=== PATIENT | female | born 1990 | race American Indian/Alaskan Native ===

== ENCOUNTER 2018-11-16 20:53 | Emergency (ER) | payer OTHER ==
[2018-11-16] MEDS ORDERED: NACL 0.9% 1000 ML 1,000 ML IV ONE ×2 (21:07→22:46)
[2018-11-16 21:36] LABS: Basophils % (Auto) 0.6 % (0.0-1.8); Eosinophils % (Auto) 0.4 % (0.0-4.3); Hematocrit 44.5 % (30.3-42.9); Hemoglobin 14.5 gm/dl (10.1-14.3); Lymphocytes # (Auto) 1.1 K/mm3 (1.2-5.4); Lymphocytes % (Auto) 17.6 % (13.4-35.0); Mean Corpuscular HGB Conc 33 % (30-34); Mean Corpuscular Volume 89 fl (79-97); Monocytes # (Auto) 0.6 K/mm3 (0.0-0.8); Monocytes % (Auto) 9.9 % (0.0-7.3); Platelet Count 283 K/mm3 (140-440); Red Cell Distribution Width 13.5 % (13.2-15.2)
[2018-11-16 21:58] LABS: Alanine Aminotransferase 12 units/L (7-56); Albumin 4.5 g/dL (3.9-5); BUN/Creatinine Ratio 15; Blood Urea Nitrogen 12 mg/dL (7-17); Calcium 10.1 mg/dL (8.4-10.2); Hemolysis Index 2
--- NOTE | 2018-11-16 22:05 | Emergency Department Report ---
ED Female HPI - General Chief complaint: Abdominal Pain Stated complaint: BACK PAIN NV 12 WKS LAST PERIOD Time Seen by Provider: 11/16/18 21:50 Source: patient Mode of arrival: Ambulatory Limitations: No Limitations - History of Present Illness Initial comments: 28-year-old -[place] female who states that for the past 3 days she's had upset stomach and nausea and is 12 days late on her period. Patient reported she vomited 2 only in the morning. She complains of lower back pain and pelvic cramping that is intermittent. Patient reports that she took a home test which was negative. Patient reports she took Tylenol yesterday about 12 noon and has not taken any other pain medicine. Patient reports that she was able to eat this evening some vegetable soup and orange juice. Patient reports that the pain is worse with movement and rest makes it better. Patient denies any trauma to her abdomen or back. She reports a past medical history of asthma which has been controlled. Surgical history is anterior cruciate ligamen t surgery and meniscus tear repair in 2008 when her left knee. Patient does not have a primary care provider and has not seen a primary care provider in 2 years. Patient reports her pain is 6 out of 10. MD Complaint: pelvic pain -: days(s) (3 nausea, vomited 2) Location: suprapubic Severity: moderate Severity scale (0 -10): 6 Quality: cramping Consistency: intermittent Improves with: other (rest) Worsens with: movement Are you Now?: No Last Menstrual Period: 10/04/18 EDC: 07/11/19 Associated Symptoms: abdominal pain, nausea/vomiting - Related Data Sexually active: Yes Previous Rx's Medication Instructions Recorded Last Taken Type Vits96/Iron Fum/Folic 1 each PO QDAY #90 tablet 11/17/18 Unknown Rx [ Tablet] metroNIDAZOLE [Flagyl TAB] 250 mg PO Q8HR 7 Days #21 tablet 11/17/18 Unknown Rx Allergies Allergy/AdvReac Type Severity Reaction Status Date / Time No Known Allergies Allergy Unverified 11/16/18 21:07 ED Review of Systems ROS: Stated complaint: BACK PAIN NV 12 WKS LAST PERIOD Other details as noted in HPI Comment: All other systems reviewed and negative Gastrointestinal: abdominal pain, nausea, vomiting ED Past Medical Hx - Past Medical History Previous Medical History?: No Hx Hypertension: No Hx CVA: No Hx Heart Attack/AMI: No Hx Congestive Heart Failure: No Hx Diabetes: No Hx Deep Vein Thrombosis: No Hx Pulmonary Embolism: No Hx GERD: No Hx Liver Disease: No Hx Renal Disease: No Hx of Cancer: No Hx Sickle Cell Disease: No Hx Arthritis: No Hx Headaches / Migraines: No Hx Seizures: No Hx Kidney Stones: No Hx Psychiatric Treatment: No Hx Asthma: Yes Hx COPD: No Hx Tuberculosis: No Hx Dementia: No Hx HIV: No - Surgical History Past Surgical History?: Yes Hx Coronary Stent: No Hx Open Heart Surgery: No Hx Pacemaker: No Hx Internal Defibrillator: No Hx Cholecystectomy: No Hx Appendectomy: No Hx Breast Surgery: No Additional Surgical History: acl repare on left knee - Social History Smoking Status: Never Smoker Substance Use Type: Marijuana - Medications Home Medications: Home Medications Medication Instructions Recorded Confirmed Last Taken Type Vits96/Iron Fum/Folic 1 each PO QDAY #90 tablet 11/17/18 Unknown Rx [ Tablet] metroNIDAZOLE [Flagyl TAB] 250 mg PO Q8HR 7 Days #21 tablet 11/17/18 Unknown Rx ED Physical Exam - General Limitations: No Limitations General appearance: alert, in no apparent distress - Head Head exam: Present: atraumatic, normocephalic - Eye Eye exam: Present: normal appearance - ENT ENT exam: Present: mucous membranes moist - Neck Neck exam: Present: normal inspection - Respiratory Respiratory exam: Present: normal lung sounds bilaterally. Absent: respiratory distress - Cardiovascular Cardiovascular Exam: Present: regular rate, normal rhythm. Absent: systolic murmur, diastolic murmur, rubs, gallop - GI/Abdominal GI/Abdominal exam: Present: soft, normal bowel sounds. Absent: distended, tenderness - External exam: Present: normal external exam Speculum exam: Present: vaginal discharge Bi-manual exam: Present: normal bi-manual exam. Absent: cervical motion tendernes, adnexal tenderness, uterine tenderness - Extremities Exam Extremities exam: Present: normal inspection - Back Exam Back exam: Present: normal inspection - Neurological Exam Neurological exam: Present: alert, oriented X3, normal gait - Psychiatric Psychiatric exam: Present: normal affect, normal mood - Skin Skin exam: Present: warm, dry, intact, normal color. Absent: rash ED Course Vital Signs 11/16/18 11/16/18 11/17/18 20:58 21:00 00:17 Temperature 99.3 F 99.3 F 99.1 F Pulse Rate 65 66 62 Respiratory 16 16 16 Rate Blood Pressure 110/64 110/64 Blood Pressure 110/64 104/58 [Right] O2 Sat by Pulse 100 100 100 Oximetry ED Medical Decision Making - Lab Data Result diagrams: 11/16/18 21:16 11/16/18 21:16 Labs 11/16/18 11/16/18 11/16/18 21:16 21:16 21:16 WBC 6.2 RBC 5.00 Hgb 14.5 H Hct 44.5 H MCV 89 MCH 29 MCHC 33 RDW 13.5 Plt Count 283 Lymph % (Auto) 17.6 [place] % (Auto) 9.9 H Eos % (Auto) 0.4 Baso % (Auto) 0.6 Lymph # 1.1 L [place] # 0.6 Eos # 0.0 Baso # 0.0 Seg Neutrophils % 71.5 H Seg Neutrophils # 4.5 Sodium 137 Potassium 4.1 Chloride 99.2 Carbon Dioxide 23 Anion Gap 19 BUN 12 Creatinine 0.8 Estimated GFR > 60 BUN/Creatinine Ratio 15 Glucose 87 Calcium 10.1 Total Bilirubin 0.70 AST 16 ALT 12 Alkaline Phosphatase 41 Total Protein 7.5 Albumin 4.5 Albumin/Globulin Ratio 1.5 HCG, Qual Positive HCG, Quant Urine Color Urine Turbidity Urine pH Ur Specific [place] Urine Protein Urine Glucose (UA) Urine Ketones Urine Blood Urine Nitrite Urine Bilirubin Urine Urobilinogen Ur Leukocyte Esterase Urine WBC (Auto) Urine RBC (Auto) U Epithel Cells (Auto) Urine Bacteria (Auto) Urine Mucus 11/16/18 11/16/18 21:43 22:27 WBC RBC Hgb Hct MCV MCH MCHC RDW Plt Count Lymph % (Auto) [place] % (Auto) Eos % (Auto) Baso % (Auto) Lymph # [place] # Eos # Baso # Seg Neutrophils % Seg Neutrophils # Sodium Potassium Chloride Carbon Dioxide Anion Gap BUN Creatinine Estimated GFR BUN/Creatinine Ratio Glucose Calcium Total Bilirubin AST ALT Alkaline Phosphatase Total Protein Albumin Albumin/Globulin Ratio HCG, Qual HCG, Quant 10357 H Urine Color Yellow Urine Turbidity Clear Urine pH 6.0 Ur Specific Cameron 1.018 Urine Protein <15 mg/dl Urine Glucose (UA) Neg Urine Ketones 80 Urine Blood Neg Urine Nitrite Neg Urine Bilirubin Neg Urine Urobilinogen < 2.0 Ur Leukocyte Esterase Neg Urine WBC (Auto) 2.0 Urine RBC (Auto) 3.0 U Epithel Cells (Auto) 4.0 Urine Bacteria (Auto) 1+ Urine Mucus 1+ - Radiology Data Radiology results: report reviewed FINAL REPORT EXAM: US OB lt; = 14 WEEKS FETUS HISTORY: pelvic pain +HCG TECHNIQUE: Transabdominal sonographic evaluation was performed of the female pelvis with and without color Doppler imaging. PRIORS: None. FINDINGS: FINDINGS: A single viable intrauterine is noted. [place]-rump length measures 4.6 mm and the heart rate measures 135 beats per minute. Trace free fluid in the cul-de-sac. Incidental 1.6 x 1.5 x 1.7 cm probable anterior uterine fibroid is noted. Measurements: Uterus: 8.3 x 5.2 x 6.9. Last menstrual period: 10/04/2018. Right ovary measures 1.9 x 1.6 x 2.2 cm Left ovary measures 3.5 x 1.4 x 2.5 cm IMPRESSION: Single viable intrauterine with heart rate measuring 135 beats per minute. 1.7 cm uterine fibroid with mild mass effect on the endometrial stripe. RECOMMENDATION: 20-22 week anatomic survey to document appropriate interval growth, or earlier if continued symptoms. Transcribed By: JOHN Dictated By: TREMAYNE BRICE DO Electronically Authenticated By: TREMAYNE BRICE DO Signed Date/Time: 11/17/186 DD/ TD/TT: 11/17/188 - Medical Decision Making Patient has been evaluated by this provider in fast track. Tylenol 975 mg given for pain management. CBC CMP urinalysis hCG quantitative with prep pelvic exam ultrasound will be ordered. IV normal saline started since patient has ketones in her urine and has not been able to eat or drink. Zofran given IV 4 mg for nausea. Critical care attestation.: If time is entered above; I have spent that time in minutes in the direct care of this critically ill patient, excluding procedure time. ED Disposition Clinical Impression: Incidental confirmed, BV (bacterial vaginosis) Back pain Qualifiers: Back pain location: low back pain Back pain laterality: bilateral Sciatica presence: without sciatica Disposition: - TO HOME OR SELFCARE Is pt being admited?: No Does the pt Need Aspirin: No Condition: Stable Instructions: Abdominal Pain (ED), (ED), Bacterial Vaginosis (ED) Additional Instructions: Please take antibiotics as prescribed please take your vitamins as prescribed. Please increase her water intake to avoid alcohol use for ibuprofen and Advil. Only pain medication to take Tylenol follow-up with an bulk sealer in the next 3-5 days. Prescriptions: metroNIDAZOLE [Flagyl TAB] 250 mg PO Q8HR 7 Days #21 tablet Vits96/Iron Fum/Folic [ Tablet] 1 each PO QDAY #90 tablet Referrals: CHAD URIARTE DO [Primary Care Provider] - 3-5 Days [facility] [Provider Group] - 3-5 Days [facility] [Provider Group] - 3-5 Days [facility] [Provider Group] - 3-5 Days [facility] [Provider Group] - 3-5 Days Forms: STI Treatment and Prevention, Accompanied Note
[2018-11-16 22:06] LABS: Bacteria,Urine 1+ /HPF (Negative); Bilirubin,Urine NEG (Negative); Blood,Urine NEG (Negative); Color,Urine Yellow (Yellow); Mucus,Urine 1+ /HPF; Protein,Urine <15 mg/dL mg/dL (Negative); Urobilinogen,Urine < 2.0 mg/dL (<2.0)
[2018-11-16] MEDS ORDERED: TYLENOL ONE (22:46)
[2018-11-16] MEDS ORDERED: TYLENOL PO ONE (22:46)
[2018-11-16] MEDS ORDERED: ZOFRAN IV ONE (22:46)
--- NOTE | 2018-11-17 00:07 | Ultrasound Report ---
FINAL REPORT EXAM: US OB <= 14 WEEKS FETUS HISTORY: pelvic pain +HCG TECHNIQUE: Transabdominal sonographic evaluation was performed of the female pelvis with and without color Doppler imaging. PRIORS: None. FINDINGS: FINDINGS: A single viable intrauterine is noted. [place]-rump length measures 4.6 mm and the heart rate measures 135 beats per minute. Trace free fluid in the cul-de-sac. Incidental 1.6 x 1.5 x 1.7 cm probable anterior uterine fibroid is noted. Measurements: Uterus: 8.3 x 5.2 x 6.9. Last menstrual period: 10/04/2018. Right ovary measures 1.9 x 1.6 x 2.2 cm Left ovary measures 3.5 x 1.4 x 2.5 cm IMPRESSION: Single viable intrauterine with heart rate measuring 135 beats per minute. 1.7 cm uterine fibroid with mild mass effect on the endometrial stripe. RECOMMENDATION: 20-22 week anatomic survey to document appropriate interval growth, or earlier if con tinued symptoms.
--- NOTE | 2018-11-17 00:08 | Ultrasound Report ---
FINAL REPORT EXAM: US OB TRANSVAGINAL HISTORY: pelvic pain +HCG TECHNIQUE: Transvaginal sonographic evaluation was performed of the female pelvis with and without c olor Doppler imaging. PRIORS: None. FINDINGS: FINDINGS: A single viable intrauterine is noted. [place]-rump length measures 4.6 mm and the heart rate measures 135 beats per minute. Mild fee fluid in the cul-de-sac. Incidental 1.6 x 1. 5 x 1.7 cm probable anterior uterine fibroid is noted. Measurements: Uterus: 8.3 x 5.2 x 6.9. Last menstrual period: 10/04/2018. Right ovary measures 1.9 x 1.6 x 2.2 cm Left ovary measures 3.5 x 1.4 x 2.5 cm IMPRESSION: Single viable intrauterine with heart rate measuring 135 beats per minute. 1.7 cm uterine fibroid with mild mass effect on the endometrial stripe. RECOMMENDATION: 20-22 week anatomic survey to document appropriate interval growth, or earlier if con tinued symptoms.
[2018-11-17 00:17] VITALS: BP 104/58
== END 2018-11-17 01:02 | disposition home or self-care (01) ==
LOC: ED 20:53
DX: O23.591 Infection of other part of genital tract in pregnancy, first trimester (principal); B96.89 Other specified bacterial agents as the cause of diseases classified elsewhere; O21.8 Other vomiting complicating pregnancy; O99.511 Diseases of the respiratory system complicating pregnancy, first trimester; J45.909 Unspecified asthma, uncomplicated; F12.10 Cannabis abuse, uncomplicated; Z3A.01 Less than 8 weeks gestation of pregnancy
CPT/HCPCS: 36415; 76801; 76817; 80053; 81001; 84702; 84703; 85025; 87210; 96361; 96374; 99285; J2405; J7030

== ENCOUNTER 2021-09-15 09:13 | Emergency (ER) | payer MEDICAID, OTHER ==
[2021-09-15 10:14] VITALS: BP 96/62
--- NOTE | 2021-09-15 11:31 | Emergency Department Report ---
ED General Adult HPI - General Chief complaint: Abdominal Pain Stated complaint: abdominal cramping Time Seen by Provider: 09/15/21 09:26 Source: patient Mode of arrival: Ambulatory Limitations: No Limitations - History of Present Illness Initial comments: 31-year-old -[place] female patient presents with complaints of right lower abdominal cramping pain intermittently x1 week. Patient states she was referred here by her DIRECTOR PROCESS ENGINEERING at [place] for possible ectopic . Patient states she is G3, (twin ). She denies any vaginal bleeding, dysuria/hematuria, vaginal discharge, urinary frequency, dyspareunia, or fever/chills/sweats. No pain at current per patient. She states when the pain does occur it radiates through to her back. She also denies any other past medical history. - Related Data Previous Rx's Medication Instructions Recorded Last Taken Type Vits96/Iron Fum/Folic 1 each PO QDAY #90 tablet 11/17/18 Unknown Rx [ Tablet] metroNIDAZOLE [Flagyl TAB] 250 mg PO Q8HR 7 Days #21 tablet 11/17/18 Unknown Rx Allergies Allergy/AdvReac Type Severity Reaction Status Date / Time No Known Allergies Allergy Unverified 11/16/18 21:07 ED Review of Systems ROS: Stated complaint: abdominal cramping Other details as noted in HPI Constitutional: denies: chills, diaphoresis, fever, malaise, weakness Gastrointestinal: abdominal pain. denies: nausea, vomiting Genitourinary: denies: urgency, dysuria, frequency, hematuria, discharge, abnormal menses Skin: denies: lesions Hematological/Lymphatic: denies: swollen glands ED Past Medical Hx - Past Medical History Hx Hypertension: No Hx CVA: No Hx Heart Attack/AMI: No Hx Congestive Heart Failure: No Hx Diabetes: No Hx Deep Vein Thrombosis: No Hx Pulmonary Embolism: No Hx GERD: No Hx Liver Disease: No Hx Renal Disease: No Hx Sickle Cell Disease: No Hx Arthritis: No Hx Headaches / Migraines: No Hx Seizures: No Hx Kidney Stones: No Hx Psychiatric Treatment: No Hx Asthma: Yes Hx COPD: No Hx Tuberculosis: No Hx Dementia: No Hx HIV: No - Surgical History Hx Coronary Stent: No Hx Open Heart Surgery: No Hx Pacemaker: No Hx Internal Defibrillator: No Hx Cholecystectomy: No Hx Appendectomy: No Hx Breast Surgery: No Additional Surgical History: acl repare on left knee - Social History Smoking Status: Never Smoker Substance Use Type: Marijuana - Medications Home Medications: Home Medications Medication Instructions Recorded Confirmed Last Taken Type Vits96/Iron Fum/Folic 1 each PO QDAY #90 tablet 11/17/18 Unknown Rx [ Tablet] metroNIDAZOLE [Flagyl TAB] 250 mg PO Q8HR 7 Days #21 tablet 11/17/18 Unknown Rx ED Physical Exam - General Limitations: No Limitations General appearance: alert, in no apparent distress - Head Head exam: Present: atraumatic, normocephalic - Eye Eye exam: Present: normal appearance. Absent: scleral icterus - Respiratory Respiratory exam: Absent: respiratory distress - Cardiovascular Cardiovascular Exam: Present: regular rate - GI/Abdominal GI/Abdominal exam: Present: soft, normal bowel sounds. Absent: distended, tenderness, guarding, rebound, rigid - Neurological Exam Neurological exam: Present: alert, oriented X3 - Psychiatric Psychiatric exam: Present: normal affect, normal mood - Skin Skin exam: Present: warm, dry, intact, normal color. Absent: rash ED Course Vital Signs 09/15/21 09:19 Temperature 98.6 F Pulse Rate 68 Respiratory 16 Rate Blood Pressure 96/62 O2 Sat by Pulse 100 Oximetry ED Medical Decision Making - Lab Data Result diagrams: 09/15/21 11:27 09/15/21 11:27 Lab Results 09/15/21 09/15/21 09/15/21 Range/Units 11:27 11:27 11:27 WBC 8.0 (4.5-11.0) K/mm3 RBC 4.92 (3.65-5.03) M/mm3 Hgb 13.3 (10.1-14.3) gm/dl Hct 43.0 H (30.3-42.9) % MCV 87 (79-97) fl MCH 27 L (28-32) pg MCHC 31 (30-34) % RDW 15.7 H (13.2-15.2) % Plt Count 286 (140-440) K/mm3 Lymph % (Auto) 12.7 L (13.4-35.0) % [place] % (Auto) 6.5 (0.0-7.3) % Eos % (Auto) 1.3 (0.0-4.3) % Baso % (Auto) 0.7 (0.0-1.8) % Lymph # (Auto) 1.0 L (1.2-5.4) K/mm3 [place] # (Auto) 0.5 (0.0-0.8) K/mm3 Eos # (Auto) 0.1 (0.0-0.4) K/mm3 Baso # (Auto) 0.1 (0.0-0.1) K/mm3 Seg Neutrophils % 78.8 H (40.0-70.0) % Seg Neutrophils # 6.3 (1.8-7.7) K/mm3 Sodium 138 (137-145) mmol/L Potassium 4.2 (3.6-5.0) mmol/L Chloride 101.4 (98-107) mmol/L Carbon Dioxide 24 (22-30) mmol/L Anion Gap 17 mmol/L BUN 8 (7-17) mg/dL Creatinine 0.6 (0.6-1.2) mg/dL Estimated GFR > 60 ml/min BUN/Creatinine Ratio 13 % Glucose 86 (65-100) mg/dL Calcium 9.8 (8.4-10.2) mg/dL Total Bilirubin 0.30 (0.1-1.2) mg/dL AST 15 (5-40) units/L ALT 15 (7-56) units/L Alkaline Phosphatase 57 (35-129) units/L Total Protein 7.5 (6.3-8.2) g/dL Albumin 4.4 (3.9-5) g/dL Albumin/Globulin Ratio 1.4 % HCG, Quant 97423 H (0-4) mIU/mL Urine Color (Yellow) Urine Turbidity (Clear) Urine pH (5.0-7.0) Ur Specific [place] (1.003-1.030) Urine Protein (Negative) mg/dL Urine Glucose (UA) (Negative) mg/dL Urine Ketones (Negative) mg/dL Urine Blood (Negative) Urine Nitrite (Negative) Urine Bilirubin (Negative) Urine Urobilinogen (<2.0) mg/dL Ur Leukocyte Esterase (Negative) Urine WBC (Auto) (0.0-6.0) /HPF Urine RBC (Auto) (0.0-6.0) /HPF U Epithel Cells (Auto) (0-13.0) /HPF Urine Mucus /HPF Blood Type 09/15/21 09/15/21 Range/Units 11:27 12:19 WBC (4.5-11.0) K/mm3 RBC (3.65-5.03) M/mm3 Hgb (10.1-14.3) gm/dl Hct (30.3-42.9) % MCV (79-97) fl MCH (28-32) pg MCHC (30-34) % RDW (13.2-15.2) % Plt Count (140-440) K/mm3 Lymph % (Auto) (13.4-35.0) % [place] % (Auto) (0.0-7.3) % Eos % (Auto) (0.0-4.3) % Baso % (Auto) (0.0-1.8) % Lymph # (Auto) (1.2-5.4) K/mm3 [place] # (Auto) (0.0-0.8) K/mm3 Eos # (Auto) (0.0-0.4) K/mm3 Baso # (Auto) (0.0-0.1) K/mm3 Seg Neutrophils % (40.0-70.0) % Seg Neutrophils # (1.8-7.7) K/mm3 Sodium (137-145) mmol/L Potassium (3.6-5.0) mmol/L Chloride (98-107) mmol/L Carbon Dioxide (22-30) mmol/L Anion Gap mmol/L BUN (7-17) mg/dL Creatinine (0.6-1.2) mg/dL Estimated GFR ml/min BUN/Creatinine Ratio % Glucose (65-100) mg/dL Calcium (8.4-10.2) mg/dL Total Bilirubin (0.1-1.2) mg/dL AST (5-40) units/L ALT (7-56) units/L Alkaline Phosphatase (35-129) units/L Total Protein (6.3-8.2) g/dL Albumin (3.9-5) g/dL Albumin/Globulin Ratio % HCG, Quant (0-4) mIU/mL Urine Color Yellow (Yellow) Urine Turbidity Slightly-cloudy (Clear) Urine pH 7.0 (5.0-7.0) Ur Specific [place] 1.014 (1.003-1.030) Urine Protein <15 mg/dl (Negative) mg/dL Urine Glucose (UA) Neg (Negative) mg/dL Urine Ketones Neg (Negative) mg/dL Urine Blood Neg (Negative) Urine Nitrite Neg (Negative) Urine Bilirubin Neg (Negative) Urine Urobilinogen < 2.0 (<2.0) mg/dL Ur Leukocyte Esterase Tr (Negative) Urine WBC (Auto) 1.0 (0.0-6.0) /HPF Urine RBC (Auto) 1.0 (0.0-6.0) /HPF U Epithel Cells (Auto) 13.0 (0-13.0) /HPF Urine Mucus Few /HPF Blood Type O POSITIVE - Radiology Data Radiology results: report reviewed ULTRASOUND OBSTETRIC INDICATION / CLINICAL INFORMATION: abd pain, r/o ectopic. Clinical Gestational Age (GA) in weeks, days: Approximately 7 weeks 1 day TECHNIQUE: Transabdominal. COMPARISON: None available. FINDINGS: GESTATIONAL SAC: Well-defined oval shape and intrauterine in location. Estimated gestational age is 5 weeks 5 days. YOLK SAC: No significant abnormality. EMBRYO/FETUS: A pole is not identified within the gestational sac. It is most likely too early for visualization of a pole. ADNEXA: Left ovary is unremarkable. Adjacent to the right ovary, there is a complex mass measuring 1.9 x 1.4 cm. The mass has central cystic component and is surrounded by increased vascularity. Potentially this could represent an ectopic . There is a small amount of free fluid in the posterior cul-de-sac. FREE FLUID: None. ADDITIONAL FINDINGS: Small uterine fibroid is noted along the posterior uterine body measuring 1.4 cm. IMPRESSION: 1. Intrauterine gestational sac with estimated sonographic age of 5 weeks, 5 days. 2. 1.9 cm right adnexal mass. I cannot exclude the possibility of right adnexal ectopic and clinical correlation is recommended. 3. Small amount of free fluid present. - Medical Decision Making 31-year-old -[place] female patient presents with complaints of right lower abdominal cramping pain intermittently x1 week. Patient states she was referred here by her DIRECTOR PROCESS ENGINEERING at [place] for possible ectopic . Patient states she is G3, (twin ). She denies any vaginal bleeding, dysuria/hematuria, vaginal discharge, urinary frequency, dyspareunia, or fever/chills/sweats. No pain at current per patient. She states when the pain does occur it radiates through to her back. She also denies any other past medical history. No tenderness of abdomen on exam. Beta-hCG is 11,885. UA is normal. U ltrasound shows viable IUP at 5 weeks 5 days and right adnexal mass that cannot be ruled out as an ectopic . Discussed patient with Dr. Bailey, DIRECTOR PROCESS ENGINEERING on-call who states mass is likely a corpus luteal cyst and that the patient may be discharged home with follow-up with her DIRECTOR PROCESS ENGINEERING. Patient informed to follow-up with her DIRECTOR PROCESS ENGINEERING in 2 to 3 days. Her vitals are normal, she is well-appearing. Patient is stable for discharge home. Discussed in detail signs symptoms that should prompt immediate return to the ED with patient who verbalizes understanding. Critical care attestation.: If time is entered above; I have spent that time in minutes in the direct care of this critically ill patient, excluding procedure time. ED Disposition Clinical Impression: Abdominal pain during in first trimester, Abnormal ultrasound Disposition: 01 HOME / SELF CARE / HOMELESS Is pt being admited?: No Condition: Stable Instructions: Abdominal Pain During , [id number], Abdominal Pain (ED) Additional Instructions: Please follow-up with your DIRECTOR PROCESS ENGINEERING within 2 to 3 days. If you develop new or worsening symptoms, seek immediate emergency treatment
--- NOTE | 2021-09-15 11:42 | Ultrasound Report ---
ULTRASOUND OBSTETRIC INDICATION / CLINICAL INFORMATION: abd pain, r/o ectopic. Clinical Gestational Age (GA) in weeks, days: Approximately 7 weeks 1 day TECHNIQUE: Transabdominal. COMPARISON: None available. FINDINGS: GESTATIONAL SAC: Well-defined oval shape and intrauterine in location. Estimated gestational age is 5 weeks 5 days. YOLK SAC: No significant abnormality. EMBRYO/FETUS: A pole is not identified within the gestational sac. It is most likely too early for visualization of a pole. ADNEXA: Left ovary is unremarkable. Adjacent to the right ovary, there is a complex mass measuring 1.9 x 1.4 cm. The mass has central cys tic component and is surrounded by increased vascularity. Potentially this could represent an ectopic . There is a small amount of free fluid in the posterior cul-de-sac. FREE FLUID: None. ADDITIONAL FINDINGS: Small uterine fibroid is noted along the posterior uterine body measuring 1.4 cm . IMPRESSION: 1. Intrauterine gestational sac with estimated sonographic age of 5 weeks, 5 days. 2. 1.9 cm right adnexal mass. I cannot exclude the possibility of right adnexal ectopic and clinical correlation is recommended. 3. Small amount of free fluid present. CRITICAL RESULT: Time of Discovery: 1020 RESIDENTIAL ROOFER Time of Communication: 10:37 RESIDENTIAL ROOFER Licensed Practitioner Receiving Report: Mary Read Back Performed: Yes. Signer Name: Alta Ospina MD Signed: 09/15/2021 11:38 AM Workstation Name: [id number]
--- NOTE | 2021-09-15 11:42 | Ultrasound Report ---
ULTRASOUND OBSTETRIC INDICATION / CLINICAL INFORMATION: abd pain, r/o ectopic. Clinical Gestational Age (GA) in weeks, days: Approximately 7 weeks 1 day TECHNIQUE: Transabdominal. COMPARISON: None available. FINDINGS: GESTATIONAL SAC: Well-defined oval shape and intrauterine in location. Estimated gestational age is 5 weeks 5 days. YOLK SAC: No significant abnormality. EMBRYO/FETUS: A pole is not identified within the gestational sac. It is most likely too early for visualization of a pole. ADNEXA: Left ovary is unremarkable. Adjacent to the right ovary, there is a complex mass measuring 1.9 x 1.4 cm. The mass has central cys tic component and is surrounded by increased vascularity. Potentially this could represent an ectopic . There is a small amount of free fluid in the posterior cul-de-sac. FREE FLUID: None. ADDITIONAL FINDINGS: Small uterine fibroid is noted along the posterior uterine body measuring 1.4 cm . IMPRESSION: 1. Intrauterine gestational sac with estimated sonographic age of 5 weeks, 5 days. 2. 1.9 cm right adnexal mass. I cannot exclude the possibility of right adnexal ectopic and clinical correlation is recommended. 3. Small amount of free fluid present. CRITICAL RESULT: Time of Discovery: 1020 LABOR RELATIONS ANALYST Time of Communication: 10:37 LABOR RELATIONS ANALYST Licensed Practitioner Receiving Report: Mary Read Back Performed: Yes. Signer Name: Alta Ospina MD Signed: 09/15/2021 11:38 AM Workstation Name: [id number]
[2021-09-15 11:49] LABS: Basophils # (Auto) 0.1 K/mm3 (0.0-0.1); Basophils % (Auto) 0.7 % (0.0-1.8); Eosinophils # (Auto) 0.1 K/mm3 (0.0-0.4); Eosinophils % (Auto) 1.3 % (0.0-4.3); Hemoglobin 13.3 gm/dl (10.1-14.3); Lymphocytes % (Auto) 12.7 % (13.4-35.0); Mean Corpuscular HGB Conc 31 % (30-34); Mean Corpuscular Volume 87 fl (79-97); Monocytes # (Auto) 0.5 K/mm3 (0.0-0.8); Monocytes % (Auto) 6.5 % (0.0-7.3); Platelet Count 286 K/mm3 (140-440); Red Blood Count 4.92 M/mm3 (3.65-5.03); Red Cell Distribution Width 15.7 % (13.2-15.2)
[2021-09-15 12:02] LABS: Alanine Aminotransferase 15 units/L (7-56); Albumin 4.4 g/dL (3.9-5); Blood Urea Nitrogen 8 mg/dL (7-17); Calcium 9.8 mg/dL (8.4-10.2); Hemolysis Index 7
[2021-09-15 12:05] LABS: BUN/Creatinine Ratio 13
[2021-09-15 12:26] LABS: Bilirubin,Urine NEG (Negative); Blood,Urine NEG (Negative); Color,Urine Yellow (Yellow); Mucus,Urine FEW /HPF; Protein,Urine <15 mg/dL mg/dL (Negative); Urobilinogen,Urine < 2.0 mg/dL (<2.0)
== END 2021-09-15 14:53 | disposition home or self-care (01) ==
LOC: ED 09:13
DX: O26.891 Other specified pregnancy related conditions, first trimester (principal); R10.31 Right lower quadrant pain; Z3A.01 Less than 8 weeks gestation of pregnancy
CPT/HCPCS: 36415; 76801; 76817; 80053; 81001; 84702; 85025; 86900; 86901; 99284